=== PATIENT | male | born 1985 | race Two or more races ===

== ENCOUNTER 2021-07-07 17:41 | Inpatient (IN) | payer MEDICAID, OTHER ==
[~2021-07-07] VITALS: Ht 170.2 cm; Wt 92.6 kg
[2021-07-07 18:53] LABS: Basophils # (auto) 0.1 10 ^3/uL (0-0.2); Eosinophils # (auto) 0.1 10 ^3/uL (0-0.8); Hemoglobin 10.8 g/dL (13.5-17.5); Mean Corpuscular Hemoglobin 25.5 pg (28.0-32.0); Monocytes # (auto) 0.5 10 ^3/uL (0-1.3); Neutrophils # (auto) 4.2 10 ^3/uL (1.6-8.6); Nucleated Red Blood Cells % 0.2 %
[2021-07-07 18:55] LABS: Lymphocytes # (auto) 0.8 10 ^3/uL (0.4-5.4); Mean Corpuscular Hgb Conc. 31.7 g/dL (32.0-36.0); Mean Corpuscular Volume 80.2 fL (80.0-100.0); Monocytes % (auto) 8.5 % (0.0-12.0); Neutrophils % (auto) 74.5 % (37.0-80.0); Red Blood Cells 4.23 10^6/uL (4.5-5.90); Red Cell Distribution Width 19.3 % (11.8-14.3); White Blood Cell 5.6 10^3/uL (4.4-10.8)
[2021-07-07 19:11] LABS: Albumin 2.9 g/dL (3.4-5.0); BUN/Creatinine Ratio 25.9; Calcium 8.7 mg/dL (8.5-10.1); Potassium 4.5 mmol/L (3.5-5.1)
[2021-07-07 19:22] LABS: Bilirubin, Total 1.4 mg/dL (0.2-1.0); Total Protein 7.3 g/dL (6.4-8.2)
[2021-07-07] MEDS ORDERED: FUROSEMIDE 40 MG/4 ML VIAL IV ONE (19:45)
[2021-07-07] MEDS ORDERED: ONDANSETRON HCL 4 MG/2 ML VIAL IV ONE (21:30)
[2021-07-07] MEDS ORDERED: MORPHINE SULFATE 4 MG/ML SYR/VIAL IV ONE (21:30)
[2021-07-07] MEDS ORDERED: CARVEDILOL 3.125 MG TAB PO ONE (22:30)
[2021-07-07] MEDS ORDERED: ONDANSETRON HCL 4 MG/2 ML VIAL IV PRN (22:30)
[2021-07-07] MEDS ORDERED: MORPHINE SULFATE INJECTION 2 MG/ML SYRG IV PRN (22:30)
[2021-07-07] MEDS ORDERED: NITROGLYCERIN 0.4 MG SL TAB SL PRN (22:30)
[2021-07-07] MEDS ORDERED: TEMAZEPAM 15 MG CAP PO PRN (22:30)
[2021-07-07 22:57] LABS: INR 1.27 (0.9-1.15)
[2021-07-07 23:47] LABS: Urine Bacteria FEW /hpf (None Seen); Urine Blood TRACE /uL (Negative); Urine Hyaline Cast FEW /lpf (0 - 2); Urine Mucus FEW (None Seen); Urine Specific Gravity 1.006 (1.001-1.035); Urine WBC 1 /hpf (0 - 3)
[2021-07-08] MEDS: HYDROcodone-ACET 5/325MG TAB PO PRN ×2 (03:19→14:37)
[2021-07-08 05:21] LABS: Basophils # (auto) 0.1 10 ^3/uL (0-0.2); Eosinophils # (auto) 0.2 10 ^3/uL (0-0.8); Hemoglobin 10.4 g/dL (13.5-17.5); Monocytes # (auto) 0.6 10 ^3/uL (0-1.3)
[2021-07-08 05:25] LABS: Basophils % (auto) 1.1 % (0.0-2.0); Eosinophils % (auto) 2.5 % (0.0-7.0); Hematocrit 31.9 % (41.0-53.0); Lymphocytes # (auto) 1.1 10 ^3/uL (0.4-5.4); Lymphocytes % (auto) 17.6 % (10.0-50.0); Mean Corpuscular Hemoglobin 25.7 pg (28.0-32.0); Mean Corpuscular Hgb Conc. 32.5 g/dL (32.0-36.0); Monocytes % (auto) 9.8 % (0.0-12.0); Neutrophils # (auto) 4.2 10 ^3/uL (1.6-8.6); Nucleated Red Blood Cells % 0.2 %; Red Blood Cells 4.03 10^6/uL (4.5-5.90); Red Cell Distribution Width 19.3 % (11.8-14.3); White Blood Cell 6.1 10^3/uL (4.4-10.8)
[2021-07-08 05:36] LABS: Albumin 2.9 g/dL (3.4-5.0); Calcium 8.4 mg/dL (8.5-10.1); Potassium 4.5 mmol/L (3.5-5.1)
[2021-07-08 05:38] LABS: BUN/Creatinine Ratio 25.5
[2021-07-08 05:41] LABS: Bilirubin, Total 1.3 mg/dL (0.2-1.0)
[2021-07-08] MEDS ORDERED: FUROSEMIDE 40 MG/4 ML VIAL IV SCH (06:00)
[2021-07-08] MEDS: FUROSEMIDE 40 MG/4 ML VIAL IV SCH ×2 (06:17→17:11)
[2021-07-08] MEDS: LEVOTHYROXINE SODIUM 25 MCG TAB PO SCH (06:45)
[2021-07-08] MEDS: CLOPIDOGREL BISULFATE 75 MG TAB PO SCH ×2 (07:33→10:58)
[2021-07-08] MEDS ORDERED: HYDROcodone-ACET 5/325MG TAB PO ONE (08:45)
[2021-07-08] MEDS ORDERED: LIDOCAINE 2%HCL (LOCAL ANESTH.) INJ 10ml MDV ONE (08:45)
[2021-07-08] MEDS ORDERED: CEFEPIME 1GM/ 50ML 50 ML IV ONE (09:00)
[2021-07-08] MEDS ORDERED: VANCOMYCIN 1GM/250ML 250 ML IV ONE (10:00)
[2021-07-08] MEDS ORDERED: ASPirin 81 mg TAB PO SCH (10:00)
[2021-07-08] MEDS: PANTOPRAZOLE 40 MG TAB PO SCH (10:58)
[2021-07-08] MEDS: CARVEDILOL 3.125 MG TAB PO SCH ×2 (10:58→22:00)
[2021-07-08 12:29] VITALS: BP 126/87
[2021-07-08 13:00] VITALS: BP 130/77
[2021-07-08] MEDS: URSODIOL 300 MG CAP PO SCH ×2 (14:25→22:00)
[2021-07-08] MEDS ORDERED: ALBUMIN 25% 50 ML IV ONE ×2 (15:45→22:00)
[2021-07-08] MEDS: LIDOCAINE HCL 2% TOP JELLY 5ML TOP PRN (16:51)
[2021-07-08 17:00] VITALS: BP 101/65
[2021-07-08 22:00] VITALS: BP 119/81
[2021-07-08] MEDS: ATORVASTATIN 20 MG TAB PO SCH (22:00)
[2021-07-09] MEDS: HYDROcodone-ACET 5/325MG TAB PO PRN ×2 (01:44→16:33)
[2021-07-09 05:00] VITALS: BP 115/81
[2021-07-09 05:09] LABS: Basophils # (auto) 0.1 10 ^3/uL (0-0.2); Basophils % (auto) 1.8 % (0.0-2.0); Eosinophils # (auto) 0.1 10 ^3/uL (0-0.8); Eosinophils % (auto) 2.1 % (0.0-7.0); Hematocrit 32.8 % (41.0-53.0); Hemoglobin 10.6 g/dL (13.5-17.5); Lymphocytes # (auto) 0.8 10 ^3/uL (0.4-5.4); Lymphocytes % (auto) 18.7 % (10.0-50.0); Mean Corpuscular Hemoglobin 25.7 pg (28.0-32.0); Mean Corpuscular Hgb Conc. 32.5 g/dL (32.0-36.0); Mean Corpuscular Volume 79.2 fL (80.0-100.0); Monocytes # (auto) 0.5 10 ^3/uL (0-1.3); Monocytes % (auto) 10.2 % (0.0-12.0); Neutrophils % (auto) 67.2 % (37.0-80.0); Nucleated Red Blood Cells % 0.4 %; Red Blood Cells 4.14 10^6/uL (4.5-5.90); Red Cell Distribution Width 19.1 % (11.8-14.3); White Blood Cell 4.5 10^3/uL (4.4-10.8)
[2021-07-09 05:26] LABS: Calcium 7.8 mg/dL (8.5-10.1); Potassium 4.9 mmol/L (3.5-5.1)
[2021-07-09 05:29] LABS: BUN/Creatinine Ratio 24.3
[2021-07-09] MEDS: LEVOTHYROXINE SODIUM 25 MCG TAB PO SCH (07:57)
[2021-07-09] MEDS: URSODIOL 300 MG CAP PO SCH ×3 (07:57→22:11)
[2021-07-09] MEDS: FUROSEMIDE 40 MG/4 ML VIAL IV SCH (07:57)
[2021-07-09] MEDS: DAKINS HALF STR 0.25% (NaHypochlorite) 473 ML TOPICAL SOL TOP SCH (10:00)
[2021-07-09] MEDS: DAPAGLIFLOZIN 5 MG TAB PO SCH (10:14)
[2021-07-09] MEDS: ASPirin 81 mg TAB PO SCH (10:14)
[2021-07-09] MEDS: PANTOPRAZOLE 40 MG TAB PO SCH (10:14)
[2021-07-09] MEDS: CARVEDILOL 3.125 MG TAB PO SCH ×2 (10:16→22:12)
[2021-07-09 13:00] VITALS: BP 111/74
[2021-07-09] MEDS: BACITRACIN TOP OINT 1 UD PKG TOP SCH ×2 (13:47→22:12)
[2021-07-09 17:00] VITALS: BP 120/91
[2021-07-09] MEDS: LIDOCAINE HCL 2% TOP JELLY 5ML TOP PRN (17:56)
[2021-07-09] MEDS: MORPHINE SULFATE INJECTION 2 MG/ML SYRG IV PRN ×2 (18:41→22:58)
[2021-07-09 20:34] LABS: Amphetamine Screen, Urine NEGATIVE (NEGATIVE); Barbiturate Scree,Urine NEGATIVE (NEGATIVE); Benzodiazephine Screen, Urine NEGATIVE (NEGATIVE); Cannabinoid Screen, Urine POSITIVE (NEGATIVE); Cocaine Screen, Urine NEGATIVE (NEGATIVE); Opiate Scree,Urine POSITIVE (NEGATIVE); Phencyclidine Screen, Urine NEGATIVE (NEGATIVE); Protein, Urine 75.1 mg/dL (0.0-11.9)
[2021-07-09 20:42] LABS: Creatinine, Urine 118 mg/dL (30.0-125.0)
[2021-07-09 22:00] VITALS: BP 139/99
[2021-07-09] MEDS: ATORVASTATIN 20 MG TAB PO SCH (22:11)
[2021-07-10] MEDS: LIDOCAINE HCL 2% TOP JELLY 5ML TOP PRN (01:41)
[2021-07-10] MEDS: MORPHINE SULFATE INJECTION 2 MG/ML SYRG IV PRN ×4 (04:24→22:31)
[2021-07-10 05:00] VITALS: BP 117/85
[2021-07-10] MEDS: URSODIOL 300 MG CAP PO SCH ×3 (06:04→22:17)
[2021-07-10] MEDS: LEVOTHYROXINE SODIUM 112 MCG TAB PO SCH (06:05)
[2021-07-10] MEDS: LEVOTHYROXINE SODIUM 25 MCG TAB PO SCH (06:05)
[2021-07-10 06:52] LABS: Calcium 7.9 mg/dL (8.5-10.1); Potassium 4.9 mmol/L (3.5-5.1)
[2021-07-10 06:54] LABS: BUN/Creatinine Ratio 26.8
[2021-07-10 08:06] LABS: RPR Non Reactive (Non Reactive)
[2021-07-10 09:00] VITALS: BP 123/88
[2021-07-10] MEDS: BACITRACIN TOP OINT 1 UD PKG TOP SCH ×2 (09:56→22:18)
[2021-07-10] MEDS: DAPAGLIFLOZIN 5 MG TAB PO SCH (09:56)
[2021-07-10] MEDS: CLOPIDOGREL BISULFATE 75 MG TAB PO SCH (09:56)
[2021-07-10] MEDS: PANTOPRAZOLE 40 MG TAB PO SCH (09:56)
[2021-07-10] MEDS: FUROSEMIDE 40 MG/4 ML VIAL IV SCH (09:57)
[2021-07-10] MEDS: ASPirin 81 mg TAB PO SCH (09:57)
[2021-07-10] MEDS: CARVEDILOL 3.125 MG TAB PO SCH ×2 (09:58→22:18)
[2021-07-10] MEDS: DAKINS HALF STR 0.25% (NaHypochlorite) 473 ML TOPICAL SOL TOP SCH (09:58)
[2021-07-10 13:00] VITALS: BP 103/67
[2021-07-10] MEDS ORDERED: cefTRIAXone 1GM/50ML D5W 50 ML IV ONE (14:30)
[2021-07-10 22:00] VITALS: BP 107/76
[2021-07-10] MEDS: ATORVASTATIN 20 MG TAB PO SCH (22:18)
[2021-07-11 05:00] VITALS: BP 100/66
[2021-07-11 05:48] LABS: BUN/Creatinine Ratio 26.2; Calcium 7.9 mg/dL (8.5-10.1); Potassium 4.3 mmol/L (3.5-5.1)
[2021-07-11] MEDS: URSODIOL 300 MG CAP PO SCH ×3 (06:03→22:37)
[2021-07-11] MEDS: MORPHINE SULFATE INJECTION 2 MG/ML SYRG IV PRN (06:06)
[2021-07-11] MEDS: LEVOTHYROXINE SODIUM 25 MCG TAB PO SCH (07:10)
[2021-07-11] MEDS: LEVOTHYROXINE SODIUM 112 MCG TAB PO SCH (07:10)
[2021-07-11 09:00] VITALS: BP 103/83
[2021-07-11] MEDS: DAPAGLIFLOZIN 5 MG TAB PO SCH (09:06)
[2021-07-11] MEDS: cefTRIAXone 1GM/50ML D5W 50 ML IV SCH (09:06)
[2021-07-11] MEDS: PANTOPRAZOLE 40 MG TAB PO SCH (09:07)
[2021-07-11] MEDS: CLOPIDOGREL BISULFATE 75 MG TAB PO SCH (09:07)
[2021-07-11] MEDS: BACITRACIN TOP OINT 1 UD PKG TOP SCH ×2 (09:07→22:38)
[2021-07-11] MEDS: FUROSEMIDE 40 MG/4 ML VIAL IV SCH (09:07)
[2021-07-11] MEDS: ASPirin 81 mg TAB PO SCH (09:07)
[2021-07-11] MEDS: CARVEDILOL 3.125 MG TAB PO SCH ×2 (09:08→22:35)
[2021-07-11] MEDS: DAKINS HALF STR 0.25% (NaHypochlorite) 473 ML TOPICAL SOL TOP SCH (09:08)
[2021-07-11 09:41] LABS: Hepatitis B Surface Antibody Negative (Negative)
[2021-07-11 10:12] LABS: Hepatitis A Total Antibody Negative (Negative)
[2021-07-11] MEDS ORDERED: ATOR20TA50 PO (11:16)
[2021-07-11] MEDS ORDERED: PANT40TA2 PO (11:16)
[2021-07-11] MEDS ORDERED: CARV6.25 PO (11:16)
[2021-07-11] MEDS ORDERED: URSO300C9 PO (11:16)
[2021-07-11] MEDS ORDERED: LEVO137T3 PO (11:16)
[2021-07-11] MEDS ORDERED: ASPI1CHW15 PO (11:16)
[2021-07-11] MEDS ORDERED: FURO40TA4 PO (11:16)
[2021-07-11] MEDS ORDERED: CLOP75TA70 PO (11:17)
[2021-07-11] MEDS ORDERED: GABA100C9 PO (11:17)
[2021-07-11] MEDS: HYDROcodone-ACET 5/325MG TAB PO PRN ×2 (12:29→22:36)
[2021-07-11 13:00] VITALS: BP 114/79
[2021-07-11 13:12] LABS: Hepatitis C Antibody Negative (Negative)
[2021-07-11] MEDS: ACYCLOVIR 400 MG TAB PO SCH ×2 (13:30→22:37)
[2021-07-11 17:00] VITALS: BP 125/95
[2021-07-11 22:00] VITALS: BP 109/73
[2021-07-11] MEDS: ATORVASTATIN 20 MG TAB PO SCH (22:36)
[2021-07-12 05:00] VITALS: BP 129/85
[2021-07-12 05:54] LABS: Potassium 4.3 mmol/L (3.5-5.1)
[2021-07-12 05:59] LABS: BUN/Creatinine Ratio 24.8; Calcium 7.9 mg/dL (8.5-10.1)
[2021-07-12] MEDS: LEVOTHYROXINE SODIUM 25 MCG TAB PO SCH (06:17)
[2021-07-12] MEDS: ACYCLOVIR 400 MG TAB PO SCH ×3 (06:17→21:53)
[2021-07-12] MEDS: LEVOTHYROXINE SODIUM 112 MCG TAB PO SCH (06:17)
[2021-07-12] MEDS: URSODIOL 300 MG CAP PO SCH ×3 (06:21→21:53)
[2021-07-12] MEDS: HYDROcodone-ACET 5/325MG TAB PO PRN (06:43)
[2021-07-12 09:00] VITALS: BP 105/75
[2021-07-12] MEDS: ASPirin 81 mg TAB PO SCH (10:19)
[2021-07-12] MEDS: CLOPIDOGREL BISULFATE 75 MG TAB PO SCH (10:19)
[2021-07-12] MEDS: cefTRIAXone 1GM/50ML D5W 50 ML IV SCH (10:19)
[2021-07-12] MEDS: FUROSEMIDE 40 MG/4 ML VIAL IV SCH (10:19)
[2021-07-12] MEDS: PANTOPRAZOLE 40 MG TAB PO SCH (10:20)
[2021-07-12] MEDS: BACITRACIN TOP OINT 1 UD PKG TOP SCH ×2 (10:20→21:52)
[2021-07-12] MEDS: DAPAGLIFLOZIN 5 MG TAB PO SCH (10:20)
[2021-07-12] MEDS: CARVEDILOL 3.125 MG TAB PO SCH ×2 (10:20→21:55)
[2021-07-12] MEDS: DAKINS HALF STR 0.25% (NaHypochlorite) 473 ML TOPICAL SOL TOP SCH (10:21)
[2021-07-12] MEDS ORDERED: HYDROcodone-ACET 5/325MG TAB PO PRN (11:15)
[2021-07-12 13:00] VITALS: BP 97/63
[2021-07-12] MEDS ORDERED: MORPHINE SULFATE INJECTION 2 MG/ML SYRG IV PRN (14:30)
[2021-07-12] MEDS: MORPHINE SULFATE 4 MG/ML SYR/VIAL IV PRN ×2 (15:03→20:01)
[2021-07-12 17:10] VITALS: BP 114/80
[2021-07-12] MEDS: LACTULOSE 20Gm/30ML SOLN PO SCH (21:51)
[2021-07-12] MEDS: ATORVASTATIN 20 MG TAB PO SCH (21:53)
[2021-07-12 22:00] VITALS: BP 132/89
[2021-07-13] MEDS: MORPHINE SULFATE 4 MG/ML SYR/VIAL IV PRN ×3 (00:13→09:15)
[2021-07-13 05:00] VITALS: BP 130/95
[2021-07-13] MEDS: ACYCLOVIR 400 MG TAB PO SCH ×2 (05:19→13:59)
[2021-07-13] MEDS: URSODIOL 300 MG CAP PO SCH ×2 (05:19→14:00)
[2021-07-13] MEDS: LEVOTHYROXINE SODIUM 25 MCG TAB PO SCH (06:41)
[2021-07-13] MEDS: LEVOTHYROXINE SODIUM 112 MCG TAB PO SCH (06:41)
[2021-07-13 08:00] VITALS: BP 130/95
[2021-07-13] MEDS: BACITRACIN TOP OINT 1 UD PKG TOP SCH (09:21)
[2021-07-13] MEDS: CLOPIDOGREL BISULFATE 75 MG TAB PO SCH (09:21)
[2021-07-13] MEDS: LACTULOSE 20Gm/30ML SOLN PO SCH (09:22)
[2021-07-13] MEDS: PANTOPRAZOLE 40 MG TAB PO SCH (09:22)
[2021-07-13] MEDS: CARVEDILOL 3.125 MG TAB PO SCH (09:23)
[2021-07-13] MEDS: ASPirin 81 mg TAB PO SCH (09:23)
[2021-07-13] MEDS: FUROSEMIDE 40 MG/4 ML VIAL IV SCH (09:23)
[2021-07-13] MEDS: cefTRIAXone 1GM/50ML D5W 50 ML IV SCH ×2 (09:23→13:01)
[2021-07-13] MEDS: DAPAGLIFLOZIN 5 MG TAB PO SCH (09:43)
[2021-07-13] MEDS: DAKINS HALF STR 0.25% (NaHypochlorite) 473 ML TOPICAL SOL TOP SCH (09:43)
[2021-07-13] MEDS ORDERED: DAKI0.25 TOP (10:45)
[2021-07-13] MEDS ORDERED: ACYC-163 PO (10:45)
[2021-07-13 13:10] VITALS: BP 109/73
[2021-07-13 14:43] VITALS: BP 110/73
== END 2021-07-13 16:52 | disposition home or self-care (01) ==
LOC: ER 17:41 → TELE 22:21 → TELE-EAST 07-08 08:23 → EAST 07-11 11:16
PROVIDERS: ADMIT Nurse Practitioner; ATTEND Internal Medicine
PROC: 0W9G3ZZ Drainage of Peritoneal Cavity, Percutaneous Approach (ICD-10-PCS; principal; 2021-07-08)
DX: K74.60 Unspecified cirrhosis of liver (principal); I50.43 Acute on chronic combined systolic (congestive) and diastolic (congestive) heart failure; I21.A1 Myocardial infarction type 2; E44.0 Moderate protein-calorie malnutrition; N17.9 Acute kidney failure, unspecified; I42.0 Dilated cardiomyopathy; D68.9 Coagulation defect, unspecified; D63.1 Anemia in chronic kidney disease; R18.8 Other ascites; K76.6 Portal hypertension; I42.7 Cardiomyopathy due to drug and external agent; I13.0 Hypertensive heart and chronic kidney disease with heart failure and stage 1 through stage 4 chronic kidney disease, or unspecified chronic kidney disease; E11.22 Type 2 diabetes mellitus with diabetic chronic kidney disease; E66.9 Obesity, unspecified; I16.1 Hypertensive emergency; I25.10 Atherosclerotic heart disease of native coronary artery without angina pectoris; J44.9 Chronic obstructive pulmonary disease, unspecified; N48.1 Balanitis; N48.5 Ulcer of penis; R14.0 Abdominal distension (gaseous); N18.32 Chronic kidney disease, stage 3b; B00.9 Herpesviral infection, unspecified; I25.5 Ischemic cardiomyopathy; Z20.822 Contact with and (suspected) exposure to COVID-19; E03.9 Hypothyroidism, unspecified; Z82.49 Family history of ischemic heart disease and other diseases of the circulatory system; Z83.3 Family history of diabetes mellitus; Z86.74 Personal history of sudden cardiac arrest; Z91.19 Patient's noncompliance with other medical treatment and regimen; Z95.1 Presence of aortocoronary bypass graft; Z95.5 Presence of coronary angioplasty implant and graft; Z68.41 Body mass index [BMI] 40.0-44.9, adult; Z91.14 Patient's other noncompliance with medication regimen
CPT/HCPCS: 36415; 71045; 74176; 76705; 76942; 80048; 80053; 80061; 80307; 81001; 82140; 82570; 82728; 83036; 83690; 83880; 84156; 84443; 84484; 85025; 85610; 86592; 86704; 86706; 86708; 86803; 87077; 87186; 87205; 87340; 89051; 93005; 93306; 96365; 96375; 99291; G0378; J0696; J2001; J2405